=== PATIENT | female | born 1950 | race Two or more races ===

== ENCOUNTER 2022-01-01 22:58 | Emergency (ER) | payer MEDICAID ==
[~2022-01-01] VITALS: Ht 162.6 cm; Wt 86.0 kg
[2022-01-01] MEDS ORDERED: HYDROcodone/acetaminophen 10/325mg tab PO ONE (23:35)
[2022-01-01 23:47] LABS: BASOPHILS % (AUTO) 0.5 % (0-1); EOSINOPHILS # (AUTO) 0.1 X10'3 (0-0.9); HEMATOCRIT 38.4 % (35.0-45.0); HEMOGLOBIN 12.8 g/dl (12.0-16.0); LYMPHOCYTES # (AUTO) 1.6 X10'3 (1.1-4.8); LYMPHOCYTES % (AUTO) 18.2 % (21-51); MEAN CORPUSCULAR HEMOGLOBIN 28.6 PG (27.0-31.0); MEAN CORPUSCULAR HGB CONC 33.4 g/dL (33.0-36.5); MEAN CORPUSCULAR VOLUME 85.8 FL (78-98); MEAN PLATELET VOLUME 9.9 FL (7.4-10.4); MONOCYTES # (AUTO) 0.4 X10'3 (0-0.9); MONOCYTES % (AUTO) 4.4 % (2-12); NEUTROPHILS # (AUTO) 6.9 X10'3 (1.8-7.7); NEUTROPHILS % (AUTO) 75.9 % (42-75); PLATELET COUNT 240 X10'3 (140-440); RED BLOOD COUNT 4.47 X10'6 (4.20-5.60); RED CELL DISTRIBUTION WIDTH 13.9 % (11.5-14.5)
[2022-01-02 00:01] LABS: ALANINE AMINOTRANSFERASE 32 U/L (12-78); ALBUMIN 3.9 G/DL (3.4-5.0); ALKALINE PHOSPHATASE 132 IU/L (46-116); ANION GAP 10 (8-16); ASPARTATE AMINO TRANSFERASE 21 U/L (10-37); BILIRUBIN,TOTAL 0.2 MG/DL (0.1-1.0); BLOOD UREA NITROGEN 20 MG/DL (7-18); BUN/CREATININE RATIO 18.3 (6.6-38.0); CALCIUM 9.4 MG/DL (8.5-10.1); CHLORIDE 104 MMOL/L (99-107); CREATININE 1.09 MG/DL (0.40-0.90); GLUCOSE 121 MG/DL (70-104); SODIUM 138 MMOL/L (135-145); TOTAL CARBON DIOXIDE 23.7 MMOL/L (24-32); eGFR 50 ML/MIN
[2022-01-02] MEDS ORDERED: HYDR-3964 PO (00:28)
[2022-01-02 00:42] VITALS: BP 147/82
== END 2022-01-02 00:45 | disposition home or self-care (01) ==
LOC: ER 22:59
DX: M54.2 Cervicalgia (principal); M54.50 Low back pain, unspecified; E78.00 Pure hypercholesterolemia, unspecified; I10 Essential (primary) hypertension; Z98.890 Other specified postprocedural states; Z90.710 Acquired absence of both cervix and uterus; Z79.899 Other long term (current) drug therapy
CPT/HCPCS: 36415; 71045; 80053; 83880; 84484; 85025; 93005; 99285

== ENCOUNTER 2022-03-09 11:04 | Day surgery (SDC) | payer MEDICAID ==
[~2022-03-09] VITALS: Ht 165.1 cm; Wt 82.3 kg
[2022-03-09 11:30] VITALS: BP 122/78
[2022-03-09] MEDS ORDERED: MIDAZolam 1 MG/ML 5ML VIAL ONE (11:38)
[2022-03-09] MEDS ORDERED: FENTANYL CITRATE/PF 50 MCG/1 ML VIAL ONE (11:38)
[2022-03-09] MEDS ORDERED: CYCL5TAB PO (11:39)
[2022-03-09] MEDS ORDERED: FAMO20TA82 PO (11:40)
[2022-03-09] MEDS ORDERED: IBUP-1985 PO (11:41)
[2022-03-09] MEDS ORDERED: IRBE150T51 PO (11:42)
[2022-03-09] MEDS ORDERED: ATOR20TA66 PO (11:42)
[2022-03-09] MEDS ORDERED: AMLO2.5T2 PO (11:43)
[2022-03-09 12:10] VITALS: BP 104/69
[2022-03-09 12:20] VITALS: BP 114/75
[2022-03-09 12:30] VITALS: BP 110/73
[2022-03-09 12:40] VITALS: BP 113/75
== END 2022-03-09 13:05 | disposition home or self-care (01) ==
LOC: GI LAB 11:04
PROVIDERS: ATTEND Internal Medicine Gastroenterology
DX: K44.9 Diaphragmatic hernia without obstruction or gangrene (principal); K31.89 Other diseases of stomach and duodenum; K21.9 Gastro-esophageal reflux disease without esophagitis; I10 Essential (primary) hypertension; K29.50 Unspecified chronic gastritis without bleeding
CPT/HCPCS: 43239; 99152; J2250; J3010; J7030; Z7512; A4620

== ENCOUNTER 2022-10-26 02:11 | Emergency (ER) | payer MEDICAID ==
[~2022-10-26] VITALS: Ht 162.6 cm; Wt 75.0 kg
[~2022-10-26 02:11] MED LIST: AMLO2.5T2 PO; ATOR20TA66 PO; CYCL5TAB PO; FAMO20TA82 PO; IBUP-1985 PO; IRBE150T51 PO
[2022-10-26 02:41] LABS: CLARITY,URINE CLEAR (Clear); COLOR,URINE STRAW (Yellow); GLUCOSE, URINE NEGATIVE (Neg); KETONES,URINE NEGATIVE (Neg); LEUKOCYTE ESTERASE ,URINE NEGATIVE (Neg); NITRITES, URINE NEGATIVE (Neg); OCCULT BLOOD,URINE NEGATIVE (Neg); PROTEIN,URINE NEGATIVE (Neg); UROBILINOGEN,URINE 0.2 E.U/dL (0.2-1.0)
[2022-10-26 02:46] LABS: UA COLLECTION TYPE CLN CATCH MIDSTREAM
[2022-10-26 03:26] LABS: BASOPHILS % (AUTO) 0.8 % (0-1); EOSINOPHILS # (AUTO) 0.1 X10'3 (0-0.9); EOSINOPHILS % (AUTO) 1.5 % (0-6); HEMATOCRIT 39.4 % (35.0-45.0); LYMPHOCYTES # (AUTO) 1.4 X10'3 (1.1-4.8); LYMPHOCYTES % (AUTO) 24.2 % (21-51); MEAN CORPUSCULAR HEMOGLOBIN 28.7 PG (27.0-31.0); MEAN CORPUSCULAR HGB CONC 33.1 g/dL (33.0-36.5); MEAN CORPUSCULAR VOLUME 86.6 FL (78-98); MEAN PLATELET VOLUME 10.3 FL (7.4-10.4); MONOCYTES # (AUTO) 0.3 X10'3 (0-0.9); MONOCYTES % (AUTO) 5.2 % (2-12); NEUTROPHILS % (AUTO) 68.3 % (42-75); PLATELET COUNT 230 X10'3 (140-440); RED BLOOD COUNT 4.55 X10'6 (4.20-5.60); RED CELL DISTRIBUTION WIDTH 13.8 % (11.5-14.5); WHITE BLOOD COUNT 5.9 X10'3 (4.5-11.0)
[2022-10-26 03:51] LABS: ALANINE AMINOTRANSFERASE 27 U/L (12-78); ALBUMIN 3.8 G/DL (3.4-5.0); ALKALINE PHOSPHATASE 112 IU/L (46-116); ANION GAP 9 (8-16); ASPARTATE AMINO TRANSFERASE 22 U/L (10-37); BILIRUBIN,TOTAL 0.4 MG/DL (0.1-1.0); BLOOD UREA NITROGEN 13 MG/DL (7-18); BUN/CREATININE RATIO 13.3 (10.0-20.0); CALCIUM 9.4 MG/DL (8.5-10.1); CHLORIDE 104 MMOL/L (99-107); CREATININE 0.98 MG/DL (0.40-0.90); GLUCOSE 106 MG/DL (70-104); LIPASE < 50 U/L (73-393); SODIUM 139 MMOL/L (135-145); TOTAL CARBON DIOXIDE 26.5 MMOL/L (24-32); TOTAL PROTEIN 7.6 G/DL (6.4-8.2); eGFR 56 ML/MIN
[2022-10-26] MEDS ORDERED: morphine 4 MG/ML inj SYRINge IV ONE (04:20)
[2022-10-26] MEDS ORDERED: normal saline 1000ML IV soln IVB ONE (04:20)
[2022-10-26] MEDS ORDERED: ondansetron/PF 4mg/2ml inj IV ONE (04:20)
[2022-10-26] MEDS ORDERED: iohexol 300mg/ml 100ml inj. ONE (04:24)
[2022-10-26] MEDS ORDERED: LIDOcaine Viscous 15ml cup MM ONE (04:25)
[2022-10-26] MEDS ORDERED: famotidine/PF 10 mg/ml inj IV ONE (04:25)
[2022-10-26] MEDS ORDERED: mag hydrox/Alum hydrox/simeth 30ml oral suspension PO ONE (04:25)
[2022-10-26] MEDS ORDERED: acetaminophen 1,000mg/100ml IV 100 ML IV STA (04:26)
--- NOTE | 2022-10-26 05:12 | NUR ---
attempted IV x3, no success. Another RN to try
--- NOTE | 2022-10-26 05:38 | NUR ---
pt to CT.
[2022-10-26] MEDS ORDERED: pantoprazole 40mg IV 40 MG in normal saline 100ml IV soln 100 ML IV ONE (07:50)
[2022-10-26] MEDS ORDERED: simethicone 125mg capsule PO ONE (07:50)
[2022-10-26] MEDS ORDERED: pantoprazole 40MG/NS 100ML BAG 100 ML IV ONE (07:54)
[2022-10-26] MEDS ORDERED: FAMO10TA41 PO (07:59)
[2022-10-26 08:35] VITALS: BP 122/63
== END 2022-10-26 08:36 | disposition home or self-care (01) ==
LOC: ER 02:12
DX: R14.2 Eructation (principal); R10.32 Left lower quadrant pain; R14.3 Flatulence; I10 Essential (primary) hypertension; E78.00 Pure hypercholesterolemia, unspecified; K21.9 Gastro-esophageal reflux disease without esophagitis; Z88.6 Allergy status to analgesic agent
CPT/HCPCS: 36415; 74177; 80053; 81003; 83690; 84484; 85025; 93005; 96374; 96375; 99285; C9113; J0131; J2405; J3490; J7030; Q9967

== ENCOUNTER 2023-07-20 05:11 | Emergency (ER) | payer MEDICAID ==
[~2023-07-20] VITALS: Ht 162.6 cm; Wt 66.5 kg
[~2023-07-20 05:11] MED LIST changes: +FAMO10TA41 PO
[2023-07-20 05:12] VITALS: TEMP 97.7
[2023-07-20 05:59] LABS: ALANINE AMINOTRANSFERASE 32 U/L (12-78); ALBUMIN 3.8 G/DL (3.4-5.0); ALKALINE PHOSPHATASE 142 IU/L (46-116); ANION GAP 10 (8-16); ASPARTATE AMINO TRANSFERASE 22 U/L (10-37); BILIRUBIN,TOTAL 0.3 MG/DL (0.1-1.0); BLOOD UREA NITROGEN 17 MG/DL (7-18); BUN/CREATININE RATIO 17.3 (10.0-20.0); CALCIUM 9.2 MG/DL (8.5-10.1); CHLORIDE 108 MMOL/L (99-107); CREATININE 0.98 MG/DL (0.40-0.90); GLUCOSE 103 MG/DL (70-104); POTASSIUM 4.5 MMOL/L (3.5-5.1); SODIUM 145 MMOL/L (135-145); TOTAL CARBON DIOXIDE 26.8 MMOL/L (24-32); TOTAL PROTEIN 7.5 G/DL (6.4-8.2); eCRCL 45 ML/MIN; eGFR 56 ML/MIN
[2023-07-20 06:02] LABS: LIPASE 24 U/L (16-77)
[2023-07-20 06:15] LABS: BASOPHILS % (AUTO) 0.8 % (0-1); EOSINOPHILS # (AUTO) 0.1 X10'3 (0-0.9); EOSINOPHILS % (AUTO) 1.7 % (0-6); HEMATOCRIT 36.5 % (35.0-45.0); HEMOGLOBIN 12.1 g/dl (12.0-16.0); LYMPHOCYTES # (AUTO) 1.5 X10'3 (1.1-4.8); LYMPHOCYTES % (AUTO) 29.5 % (21-51); MEAN CORPUSCULAR HEMOGLOBIN 27.6 PG (27.0-31.0); MEAN CORPUSCULAR HGB CONC 33.1 g/dL (33.0-36.5); MEAN CORPUSCULAR VOLUME 83.2 FL (78-98); MEAN PLATELET VOLUME 10.9 FL (7.4-10.4); MONOCYTES # (AUTO) 0.3 X10'3 (0-0.9); MONOCYTES % (AUTO) 5.8 % (2-12); NEUTROPHILS # (AUTO) 3.2 X10'3 (1.8-7.7); NEUTROPHILS % (AUTO) 62.2 % (42-75); PLATELET COUNT 256 X10'3 (140-440); RED BLOOD COUNT 4.38 X10'6 (4.20-5.60); RED CELL DISTRIBUTION WIDTH 16.5 % (11.5-14.5); WHITE BLOOD COUNT 5.1 X10'3 (4.5-11.0)
[2023-07-20] MEDS: metoclopramide 5 mg/ml inj IV ONE (07:04)
[2023-07-20] MEDS: diphenhydrAMINE 50 mg/ml inj IV ONE (07:04)
[2023-07-20 07:42] VITALS: BP 146/75; PULSE 77; RESP 17; O2SAT 98
[2023-07-20] MEDS: acetaminophen 325mg tablet PO ONE (09:15)
[2023-07-20] MEDS: LORazepam 2 mg/ml vial IV ONE (09:17)
[2023-07-20 11:04] LABS: BILIRUBIN,URINE NEGATIVE (Neg); CLARITY,URINE CLEAR (Clear); COLOR,URINE YELLOW (Yellow); GLUCOSE, URINE NEGATIVE (Neg); KETONES,URINE TRACE mg/dl (Neg); LEUKOCYTE ESTERASE ,URINE SMALL (Neg); NITRITES, URINE NEGATIVE (Neg); OCCULT BLOOD,URINE NEGATIVE (Neg); PROTEIN,URINE NEGATIVE (Neg); UROBILINOGEN,URINE 0.2 E.U/dL (0.2-1.0)
[2023-07-20 11:17] LABS: URINE AMPHETAMINE SCREEN NEGATIVE (Neg); URINE BARBITUATE SCREEN NEGATIVE (Neg); URINE BENZODIAZEPINES SCREEN POSITIVE (Neg); URINE CANNABINOID SCREEN NEGATIVE (Neg); URINE COCAINE SCREEN NEGATIVE (Neg); URINE METHADONE SCREEN NEGATIVE (Neg); URINE OPIATE SCREEN NEGATIVE (Neg); URINE PHENCYCLIDINE SCREEN NEGATIVE (Neg)
[2023-07-20 11:20] LABS: UA COLLECTION TYPE VOIDED
[2023-07-20 11:21] LABS: BACTERIA,URINE FEW /HPF (Neg); MUCUS STRANDS NONE SEEN /LPF (Neg); RBC,URINE NONE SEEN /HPF (0-2); SQUAMOUS EPITHELIAL CELL,UR FEW /LPF (FEW)
== END 2023-07-20 11:09 | disposition home or self-care (01) ==
LOC: ER 05:12
DX: G43.909 Migraine, unspecified, not intractable, without status migrainosus (principal); E78.00 Pure hypercholesterolemia, unspecified; I10 Essential (primary) hypertension; K21.9 Gastro-esophageal reflux disease without esophagitis; Z90.49 Acquired absence of other specified parts of digestive tract; Z79.899 Other long term (current) drug therapy; Z88.5 Allergy status to narcotic agent; Z88.6 Allergy status to analgesic agent
CPT/HCPCS: 70450; 71045; 74176; 80053; 80305; 81001; 83690; 84145; 84484; 85025; 87088; 93005; 96374; 96375; 99285; J1200; J2060; J2765

== ENCOUNTER 2023-07-23 06:38 | Emergency (ER) | payer MEDICAID ==
[~2023-07-23] VITALS: Ht 162.6 cm; Wt 73.0 kg
[2023-07-23 06:44] VITALS: TEMP 97.7
[2023-07-23] MEDS: ondansetron/PF 4mg/2ml inj IV ONE (07:12)
[2023-07-23] MEDS: normal saline 1000ML IV soln IVB ONE (07:12)
[2023-07-23 07:50] LABS: BASOPHILS # (AUTO) 0.1 X10'3 (0-0.2); BASOPHILS % (AUTO) 1.1 % (0-1); EOSINOPHILS # (AUTO) 0.1 X10'3 (0-0.9); HEMATOCRIT 36.1 % (35.0-45.0); HEMOGLOBIN 11.8 g/dl (12.0-16.0); LYMPHOCYTES # (AUTO) 1.6 X10'3 (1.1-4.8); LYMPHOCYTES % (AUTO) 23.6 % (21-51); MEAN CORPUSCULAR HEMOGLOBIN 27.5 PG (27.0-31.0); MEAN CORPUSCULAR HGB CONC 32.7 g/dL (33.0-36.5); MEAN CORPUSCULAR VOLUME 84.1 FL (78-98); MEAN PLATELET VOLUME 10.3 FL (7.4-10.4); MONOCYTES # (AUTO) 0.3 X10'3 (0-0.9); MONOCYTES % (AUTO) 5.1 % (2-12); NEUTROPHILS # (AUTO) 4.7 X10'3 (1.8-7.7); NEUTROPHILS % (AUTO) 69.2 % (42-75); PLATELET COUNT 209 X10'3 (140-440); RED BLOOD COUNT 4.29 X10'6 (4.20-5.60); RED CELL DISTRIBUTION WIDTH 16.9 % (11.5-14.5); WHITE BLOOD COUNT 6.8 X10'3 (4.5-11.0)
[2023-07-23] MEDS: mag hydrox/Alum hydrox/simeth 30ml oral suspension PO ONE (07:53)
[2023-07-23 08:45] LABS: BILIRUBIN,URINE NEGATIVE (Neg); CLARITY,URINE CLEAR (Clear); COLOR,URINE YELLOW (Yellow); GLUCOSE, URINE NEGATIVE (Neg); KETONES,URINE NEGATIVE (Neg); LEUKOCYTE ESTERASE ,URINE NEGATIVE (Neg); NITRITES, URINE NEGATIVE (Neg); OCCULT BLOOD,URINE NEGATIVE (Neg); PH,URINE 7.5 (4.8-8.0); PROTEIN,URINE NEGATIVE (Neg); UROBILINOGEN,URINE 0.2 E.U/dL (0.2-1.0)
[2023-07-23 08:47] LABS: ALANINE AMINOTRANSFERASE 26 U/L (12-78); ALBUMIN 3.1 G/DL (3.4-5.0); ALBUMIN/GLOBULIN RATIO 0.9 (1.1-1.5); ALKALINE PHOSPHATASE 119 IU/L (46-116); ANION GAP 11 (8-16); ASPARTATE AMINO TRANSFERASE 23 U/L (10-37); BILIRUBIN,TOTAL 0.2 MG/DL (0.1-1.0); BLOOD UREA NITROGEN 12 MG/DL (7-18); BUN/CREATININE RATIO 13.8 (10.0-20.0); CALCIUM 8.6 MG/DL (8.5-10.1); CHLORIDE 111 MMOL/L (99-107); CREATININE 0.87 MG/DL (0.40-0.90); GLUCOSE 96 MG/DL (70-104); SODIUM 146 MMOL/L (135-145); TOTAL CARBON DIOXIDE 24.1 MMOL/L (24-32); TOTAL PROTEIN 6.6 G/DL (6.4-8.2); eCRCL 51 ML/MIN; eGFR 64 ML/MIN
[2023-07-23 08:48] LABS: UA COLLECTION TYPE CLN CATCH MIDSTREAM
[2023-07-23] MEDS: simethicone 80mg chew tab PO ONE (09:10)
[2023-07-23] MEDS ORDERED: ONDA4TAB12 PO (09:14)
[2023-07-23] MEDS: ketorolac tromethamine 15mg/ml inj. IV ONE (09:24)
[2023-07-23] MEDS: LORazepam 2 mg/ml vial IV ONE (09:24)
[2023-07-23 09:57] VITALS: BP 155/84; PULSE 74; RESP 16; O2SAT 98
== END 2023-07-23 09:58 | disposition home or self-care (01) ==
LOC: ER 06:39
DX: R10.13 Epigastric pain (principal); I10 Essential (primary) hypertension; K21.9 Gastro-esophageal reflux disease without esophagitis; E78.00 Pure hypercholesterolemia, unspecified; Z88.6 Allergy status to analgesic agent; Z88.5 Allergy status to narcotic agent; Z91.041 Radiographic dye allergy status; Z79.899 Other long term (current) drug therapy; Z90.49 Acquired absence of other specified parts of digestive tract
CPT/HCPCS: 36415; 80053; 81003; 85025; 96374; 96375; 99284; J1885; J2060; J2405; J7030

== ENCOUNTER 2023-07-31 07:19 | Emergency (ER) | payer MEDICAID ==
[~2023-07-31] VITALS: Ht 165.1 cm; Wt 72.7 kg
[~2023-07-31 07:19] MED LIST changes: +ONDA4TAB12 PO
[2023-07-31 07:20] VITALS: TEMP 97.8
[2023-07-31 08:30] LABS: BASOPHILS % (AUTO) 0.9 % (0-1); EOSINOPHILS # (AUTO) 0.1 X10'3 (0-0.9); EOSINOPHILS % (AUTO) 1.7 % (0-6); HEMATOCRIT 33.6 % (35.0-45.0); HEMOGLOBIN 11.1 g/dl (12.0-16.0); LYMPHOCYTES # (AUTO) 1.2 X10'3 (1.1-4.8); LYMPHOCYTES % (AUTO) 25.9 % (21-51); MEAN CORPUSCULAR HEMOGLOBIN 27.7 PG (27.0-31.0); MEAN CORPUSCULAR VOLUME 83.9 FL (78-98); MEAN PLATELET VOLUME 10.1 FL (7.4-10.4); MONOCYTES # (AUTO) 0.3 X10'3 (0-0.9); MONOCYTES % (AUTO) 6.3 % (2-12); NEUTROPHILS # (AUTO) 2.9 X10'3 (1.8-7.7); NEUTROPHILS % (AUTO) 65.2 % (42-75); PLATELET COUNT 251 X10'3 (140-440); RED BLOOD COUNT 4.01 X10'6 (4.20-5.60); RED CELL DISTRIBUTION WIDTH 15.8 % (11.5-14.5); WHITE BLOOD COUNT 4.5 X10'3 (4.5-11.0)
[2023-07-31 08:45] LABS: ALANINE AMINOTRANSFERASE 29 U/L (12-78); ALBUMIN 3.2 G/DL (3.4-5.0); ALBUMIN/GLOBULIN RATIO 0.9 (1.1-1.5); ALKALINE PHOSPHATASE 118 IU/L (46-116); ANION GAP 7 (8-16); ASPARTATE AMINO TRANSFERASE 23 U/L (10-37); BILIRUBIN,TOTAL 0.2 MG/DL (0.1-1.0); BLOOD UREA NITROGEN 14 MG/DL (7-18); BUN/CREATININE RATIO 15.1 (10.0-20.0); CALCIUM 8.4 MG/DL (8.5-10.1); CHLORIDE 105 MMOL/L (99-107); CREATININE 0.93 MG/DL (0.40-0.90); GLUCOSE 107 MG/DL (70-104); LIPASE 23 U/L (16-77); POTASSIUM 3.8 MMOL/L (3.5-5.1); SODIUM 139 MMOL/L (135-145); TOTAL CARBON DIOXIDE 27.3 MMOL/L (24-32); TOTAL PROTEIN 6.9 G/DL (6.4-8.2); eCRCL 50 ML/MIN; eGFR 59 ML/MIN
[2023-07-31 09:19] LABS: BILIRUBIN,URINE NEGATIVE (Neg); CLARITY,URINE CLEAR (Clear); COLOR,URINE YELLOW (Yellow); GLUCOSE, URINE NEGATIVE (Neg); KETONES,URINE NEGATIVE (Neg); LEUKOCYTE ESTERASE ,URINE NEGATIVE (Neg); NITRITES, URINE NEGATIVE (Neg); OCCULT BLOOD,URINE NEGATIVE (Neg); PH,URINE 6.5 (4.8-8.0); PROTEIN,URINE NEGATIVE (Neg); UROBILINOGEN,URINE 0.2 E.U/dL (0.2-1.0)
[2023-07-31] MEDS: LIDOcaine 2% Viscous 15ml cup MM ONE (09:24)
[2023-07-31] MEDS: mag hydrox/Alum hydrox/simeth 30ml oral suspension PO ONE (09:24)
[2023-07-31] MEDS: LORazepam 1 MG tablet PO ONE (09:24)
[2023-07-31 09:30] LABS: UA COLLECTION TYPE NON-SPECIFIED
[2023-07-31 10:08] LABS: THYROID STIMULATING HORMONE 0.93 ulU/ml (0.34-4.50)
[2023-07-31 10:13] VITALS: BP 121/66; PULSE 66; RESP 12; O2SAT 97
[2023-07-31] MEDS ORDERED: metoprolol tartrate 1mg/ml inj IV ONE (10:35)
[2023-07-31] MEDS ORDERED: LORA-269 PO (12:01)
== END 2023-07-31 12:30 | disposition home or self-care (01) ==
LOC: ER 07:19
DX: F41.9 Anxiety disorder, unspecified (principal); R10.13 Epigastric pain; E78.00 Pure hypercholesterolemia, unspecified; I10 Essential (primary) hypertension; K21.9 Gastro-esophageal reflux disease without esophagitis; Z88.6 Allergy status to analgesic agent; Z88.5 Allergy status to narcotic agent; Z91.041 Radiographic dye allergy status; Z79.899 Other long term (current) drug therapy; Z79.2 Long term (current) use of antibiotics; Z90.49 Acquired absence of other specified parts of digestive tract; Z90.710 Acquired absence of both cervix and uterus
CPT/HCPCS: 36415; 80053; 81003; 83690; 83735; 84443; 85025; 99284

== ENCOUNTER 2023-08-02 09:21 | Emergency (ER) | payer MEDICAID ==
[~2023-08-02] VITALS: Ht 162.6 cm; Wt 63.0 kg
[~2023-08-02 09:21] MED LIST changes: +LORA-269 PO
[2023-08-02 09:22] VITALS: BP 134/87; PULSE 102; O2SAT 98
[2023-08-02 11:23] LABS: BASOPHILS % (AUTO) 0.6 % (0-1); EOSINOPHILS % (AUTO) 0.6 % (0-6); HEMATOCRIT 36.8 % (35.0-45.0); HEMOGLOBIN 12.1 g/dl (12.0-16.0); LYMPHOCYTES # (AUTO) 1.2 X10'3 (1.1-4.8); LYMPHOCYTES % (AUTO) 17.9 % (21-51); MEAN CORPUSCULAR HEMOGLOBIN 27.5 PG (27.0-31.0); MEAN CORPUSCULAR HGB CONC 32.9 g/dL (33.0-36.5); MEAN CORPUSCULAR VOLUME 83.6 FL (78-98); MONOCYTES # (AUTO) 0.3 X10'3 (0-0.9); MONOCYTES % (AUTO) 4.7 % (2-12); NEUTROPHILS # (AUTO) 5.2 X10'3 (1.8-7.7); NEUTROPHILS % (AUTO) 76.2 % (42-75); PLATELET COUNT 275 X10'3 (140-440); RED CELL DISTRIBUTION WIDTH 15.4 % (11.5-14.5); WHITE BLOOD COUNT 6.8 X10'3 (4.5-11.0)
[2023-08-02 11:38] LABS: ALANINE AMINOTRANSFERASE 32 U/L (12-78); ALBUMIN 3.6 G/DL (3.4-5.0); ALBUMIN/GLOBULIN RATIO 0.9 (1.1-1.5); ALKALINE PHOSPHATASE 121 IU/L (46-116); ANION GAP 9 (8-16); ASPARTATE AMINO TRANSFERASE 21 U/L (10-37); BILIRUBIN,TOTAL 0.3 MG/DL (0.1-1.0); BLOOD UREA NITROGEN 17 MG/DL (7-18); BUN/CREATININE RATIO 18.7 (10.0-20.0); CALCIUM 9.2 MG/DL (8.5-10.1); CHLORIDE 105 MMOL/L (99-107); CREATININE 0.91 MG/DL (0.40-0.90); GLUCOSE 130 MG/DL (70-104); LIPASE 24 U/L (16-77); SODIUM 138 MMOL/L (135-145); TOTAL CARBON DIOXIDE 23.7 MMOL/L (24-32); TOTAL PROTEIN 7.4 G/DL (6.4-8.2); eCRCL 49 ML/MIN; eGFR 61 ML/MIN
[2023-08-02] MEDS: mag hydrox/Alum hydrox/simeth 30ml oral suspension PO ONE (14:55)
[2023-08-02] MEDS: LIDOcaine 2% Viscous 15ml cup MM ONE (14:55)
[2023-08-02 16:06] VITALS: RESP 16
[2023-08-02] MEDS: LORazepam 2 mg/ml vial IV ONE (16:12)
[2023-08-02 16:30] VITALS: TEMP 97.7
== END 2023-08-02 16:32 | disposition home or self-care (01) ==
LOC: ER 09:22
DX: F41.9 Anxiety disorder, unspecified (principal); R14.2 Eructation; E78.00 Pure hypercholesterolemia, unspecified; I10 Essential (primary) hypertension; Z90.49 Acquired absence of other specified parts of digestive tract; Z90.710 Acquired absence of both cervix and uterus; Z88.5 Allergy status to narcotic agent; Z88.8 Allergy status to other drugs, medicaments and biological substances; Z79.899 Other long term (current) drug therapy; Z79.1 Long term (current) use of non-steroidal anti-inflammatories (NSAID)
CPT/HCPCS: 36415; 76700; 80053; 83690; 85025; 96374; 99285; J2060

== ENCOUNTER 2023-08-08 18:54 | Emergency (ER) | payer MEDICAID ==
[~2023-08-08] VITALS: Ht 162.6 cm; Wt 65.0 kg
[2023-08-08 19:04] VITALS: BP 141/80; PULSE 87; RESP 20; TEMP 97.7; O2SAT 97
[2023-08-08] MEDS ORDERED: LORA-268 PO ×2 (20:00→20:19)
[2023-08-08] MEDS: LORazepam 1 MG tablet PO ONE (20:24)
[2023-08-08] MEDS: ondansetron 4mg rapidly disintigrating tab PO ONE (20:25)
[2023-08-08] MEDS: acetaminophen 325mg tablet PO ONE (20:25)
== END 2023-08-08 20:45 | disposition home or self-care (01) ==
LOC: ER 18:54
DX: F41.9 Anxiety disorder, unspecified (principal); Z76.0 Encounter for issue of repeat prescription; R51.9 Headache, unspecified; R11.0 Nausea
CPT/HCPCS: 99284